=== PATIENT | male | born 1980 | race Caucasian/White ===

== ENCOUNTER 2019-11-13 15:56 | Emergency (ER) | payer MEDICAID ==
[~2019-11-13] VITALS: Ht 180.3 cm; Wt 100.0 kg
--- NOTE | 2019-11-13 16:19 | NUR ---
Pt ambulated to [email or web address] without any difficulty.
[2019-11-13 16:54] VITALS: BP 124/82
== END 2019-11-13 16:57 | disposition home or self-care (01) ==
LOC: ER 15:57
DX: S22.41XA Multiple fractures of ribs, right side, initial encounter for closed fracture (principal); F12.90 Cannabis use, unspecified, uncomplicated; F17.200 Nicotine dependence, unspecified, uncomplicated; X50.1XXA Overexertion from prolonged static or awkward postures, initial encounter; Y93.89 Activity, other specified; Y92.89 Other specified places as the place of occurrence of the external cause; Y99.9 Unspecified external cause status
CPT/HCPCS: 71101; 99283